=== PATIENT | male | born 2000 | race Caucasian/White ===

== ENCOUNTER 2023-05-08 21:01 | Emergency (ER) | payer BC ==
[2023-05-08] MEDS ORDERED: Ibuprofen 200 MG TAB ONE (22:25)
[2023-05-08] MEDS ORDERED: HYDROcodone/Acetaminophen 5/325 mg Tablet ONE (22:26)
== END 2023-05-08 22:53 | disposition home or self-care (01) ==
LOC: ERS 21:01
DX: S86.011A Strain of right Achilles tendon, initial encounter (principal); X50.1XXA Overexertion from prolonged static or awkward postures, initial encounter; Y93.67 Activity, basketball

== ENCOUNTER 2023-05-18 09:12 | Day surgery (SDC) | payer BC ==
[2023-05-17 10:58] VITALS: BMI 27.1
[2023-05-18] MEDS ORDERED: EPINEPHrine 1 MG/ML VIAL ONE (10:30)
[2023-05-18] MEDS ORDERED: CEFAZOLIN 2 GM VIAL ONE (10:30)
[2023-05-18] MEDS ORDERED: Sodium Chloride 0.9% 100 ML ONE (10:31)
[2023-05-18] MEDS ORDERED: Lidocaine 1% (PF) 30 ML VIAL ONE (10:31)
[2023-05-18] MEDS ORDERED: fentaNYL 50 mcg/mL 1 mL Vial ONE ×3 (10:37→13:40)
[2023-05-18] MEDS ORDERED: Midazolam HCl 2 mg/2 ml Vial ONE ×2 (10:38→10:55)
[2023-05-18] MEDS ORDERED: Bupivacaine PF 0.5% 30 ML VIAL ONE (10:38)
[2023-05-18] MEDS ORDERED: PROPOFOL 40 ML ONE (11:05)
[2023-05-18] MEDS ORDERED: Lidocaine 2% PF 5 ML VIAL ONE (11:06)
[2023-05-18] MEDS ORDERED: Ondansetron PF 4 MG/2 ML Vial ONE (11:06)
[2023-05-18] MEDS ORDERED: Rocuronium Bromide 10 MG/ML (10ML VIAL) ONE (11:06)
[2023-05-18] MEDS ORDERED: Dexamethasone 4 mg/ml Vial ONE (11:06)
[2023-05-18] MEDS ORDERED: ePHEDrine Sulfate 50 MG/10 ML VIAL ONE (11:38)
[2023-05-18] MEDS ORDERED: PROPOFOL 20 ML ONE (12:11)
[2023-05-18] MEDS ORDERED: SUGAMMADEX SODIUM 200 MG/2 ML VIAL ONE (12:26)
== END 2023-05-18 15:18 | disposition home or self-care (01) ==
LOC: SDC 09:12
PROVIDERS: ATTEND Orthopaedic Surgery
PROC: 0LQN0ZZ Repair Right Lower Leg Tendon, Open Approach (ICD-10-PCS; principal; 2023-05-18)
DX: S86.011A Strain of right Achilles tendon, initial encounter (principal); J45.909 Unspecified asthma, uncomplicated; Z79.52 Long term (current) use of systemic steroids; Z88.0 Allergy status to penicillin; Z88.1 Allergy status to other antibiotic agents; X58.XXXA Exposure to other specified factors, initial encounter; Y93.67 Activity, basketball
CPT/HCPCS: J0171; J0665; J1100; J2001; J2250; J2405; J2704; J3010; J3490

== ENCOUNTER 2023-05-23 10:31 | Emergency (ER) | payer BC | END 2023-05-23 14:46 | disposition home or self-care (01) | LOC: ERS 10:31 | DX: M79.661 Pain in right lower leg (principal); G89.18 Other acute postprocedural pain ==